=== PATIENT | female | born 1980 | race Two or more races ===

== ENCOUNTER → 2024-11-03 | Outpatient (CLI) | payer MEDICAID, SELFPAY ==
--- NOTE | 2024-11-03 15:00 | XR_ITS ---
Examination: Arterial duplex left upper extremity. Date and time of exam: November 03, 2024 1504 hours INDICATIONS: Left arm pain 4 weeks Findings: Duplex sonographic imaging of the left upper extremity extremity arteries using B-mode/Delgado scale imaging and Doppler spectral analysis and color flow. Ankle brachial indices have been recorded. No elevation peak systolic velocities left subclavian, axillary, brachial, radial or ulnar arteries, no significant stenoses IMPRESSION: No significant arterial stenoses left upper extremity arterial system
== END | disposition home or self-care (01) ==
PROVIDERS: PCP Physician Assistant; Referring Provider Student in an Organized Health Care Education/Training Program; Visit Provider Student in an Organized Health Care Education/Training Program
DX: M79.602 Pain in left arm (principal)
CPT/HCPCS: 93931